=== PATIENT | female | born 1960 | race Caucasian/White ===

== ENCOUNTER 2016-10-26 16:07 | Emergency (ER) | payer SELFPAY ==
[2016-10-26 16:29] VITALS: BP 120/70
--- NOTE | 2016-10-26 17:05 | UC ---
General HPI - HPI Summary HPI Summary: complaint of right lower jaw pain that started 2 days ago was flossing her teeth vigorously and then ate a hard cookie took some augmentin that was left over from a previous infection this morning denies fever and chills using some aspirin paste, clove oil, mouth wash toothpaste for sensitive teeth started to see new dentist [facility] - History of Current Complaint Chief Complaint: UCDentalProblem Stated Complaint: JAW SWOLLEN Time Seen by Provider: 10/26/16 16:30 Hx Obtained From: Patient - Allergy/Home Medications Allergies/Adverse Reactions: Allergies Allergy/AdvReac Type Severity Reaction Status Date / Time Adhesive Tape Allergy Itching Verified 10/26/16 16:18 Scented Detergent Allergy Hives Uncoded 10/26/16 16:18 Home Medications: Home Medications Amoxicillin/Clavulanate TAB* [Augmentin TAB 875*] 1 tab PO BID 10/26/16 [ History Confirmed 10/26/16] Aspirin TAB* [Aspirin 325 MG TAB*] 1 tab PO TID PRN 10/26/16 [History Confirmed 10/26/16] PMH/Surg Hx/FS Hx/Imm Hx Previously Healthy: Yes Endocrine History Of: Denies: Diabetes, Thyroid Disease Cardiovascular History Of: Denies: Cardiac Disorders, Hypertension, Congestive Heart Failure Respiratory History Of: Reports: Asthma - sometimes with allergies Denies: COPD GI/ History Of: Denies: Ulcer, Renal Disease - Surgical History Surgical History: Yes Surgery Procedure, Year, and Place: tonsillectomy at 10 years old. csection 1994 - Family History Known Family History: Positive: None Negative: Cardiac Disease, Hypertension, Diabetes - Social History Alcohol Use: Occasionally Substance Use Type: None Smoking Status (MU): Never Smoked Tobacco Review of Systems Constitutional: Negative Skin: Negative Eyes: Negative ENT: Dental Pain Respiratory: Negative Cardiovascular: Negative Gastrointestinal: Negative Genitourinary: Negative Motor: Negative Neurovascular: Negative Musculoskeletal: Negative Neurological: Negative Psychological: Negative All Other Systems Reviewed And Are Negative: Yes Physical Exam Triage Information Reviewed: Yes Appearance: No Pain Distress, Well-Nourished Vital Signs: Initial Vital Signs Temp 98.2 F 10/26/16 16:21 Pulse 63 10/26/16 16:21 Resp 16 10/26/16 16:21 BP 120/70 10/26/16 16:21 Pulse Ox 98 04/01/17 16:21 Vital Signs Reviewed: Yes Eyes: Positive: Conjunctiva Clear ENT: Positive: Pharynx normal, TMs normal. Negative: Nasal congestion Dental: Positive: Abscess @ - 29 Neck: Positive: No Lymphadenopathy Respiratory: Positive: Lungs clear, Normal breath sounds, No respiratory distress Cardiovascular: Positive: RRR, No Murmur, Pulses Normal Abdomen Description: Positive: Nontender, Soft Bowel Sounds: Positive: Present Musculoskeletal: Positive: No Edema Neurological: Positive: Alert Psychological Exam: Normal Skin Exam: Normal Course/Dx - Differential Dx - Multi-Symptom Differential Diagnoses: Other - dental infection, dental abscess Provider Diagnoses: dental abscess Discharge - Discharge Plan Condition: Stable Disposition: HOME Prescriptions: Amoxicillin/Clavulanate TAB* [Augmentin TAB 875*] 875 mg PO BID #20 tab Patient Education Materials: Dental Abscess (ED) Forms: *Work Release Referrals: No Primary Care Phys,NOPCP [Primary Care Provider] - [facility]FERR[facility] [Outside] Additional Instructions: Start antibiotic as directed Increase fluids and rest Take acetaminophen or ibuprofen for fever or pain please followup with your dentist for further treatment Please review your discharge instructions. If your symptoms do not improve please call your primary care provider or return to urgent care
[2016-10-26] MEDS ORDERED: Ibuprofen TAB* 400 MG PO ONE (17:24)
== END 2016-10-26 17:36 | disposition home or self-care (01) ==
LOC: UCEAST 16:07
DX: K04.7 Periapical abscess without sinus (principal)
CPT/HCPCS: 99212; A9270-GY; G0463

== ENCOUNTER 2016-12-12 18:34 | Emergency (ER) | payer BC ==
[2016-12-12 18:54] VITALS: BP 134/78
--- NOTE | 2016-12-12 19:13 | UC ---
Lower Extremity/Ankle HPI - HPI Summary HPI Summary: The patient comes in today for: 1. Pain in the right leg: Onset: About a week ago. Palliative/provocative: Standing and sitting makes it worse. Quality: Sharp and ache Region: behind the right leg. Severity: 6/10 Time: Constant. Associated symptoms: Event: She got up from her bed and cross the hallway. She slipped on the floor and right right leg was out in front of her. She states that she was on the floor for about an hour. The leg was in spasm. She took ibuprofen and muscle relaxer and finally got up. She did not put ice on it. She rested and kept her leg elevated. She did not see anyone for this. She was able to work today and yesterday. Previous injury: none. 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 ?: No - Allergies/Home Medications Allergies/Adverse Reactions: Allergies Allergy/AdvReac Type Severity Reaction Status Date / Time Adhesive Tape Allergy Itching Verified 12/12/16 18:54 Scented Detergent Allergy Hives Uncoded 12/12/16 18:54 PMH/Surg Hx/FS Hx/Imm Hx Previously Healthy: No - She has "factor V" Endocrine History Of: Denies: Diabetes, Thyroid Disease, Hyperthyroidism, Hypothyroidism, Dyslipidemia Cardiovascular History Of: Denies: Cardiac Disorders, Hypertension, Pacemaker/ICD, Myocardial Infarction , Congestive Heart Failure, Atrial Fibrillation, Deep Vein Thrombosis, Bleeding Disorders Respiratory History Of: Reports: Asthma - sometimes with allergies Denies: COPD, Bronchitis, Pneumonia, Pulmonary Embolism GI/ History Of: Denies: Gastroesophageal Reflux, Ulcer, Gastrointestinal Bleed, Gall Bladder Disease, Kidney Stones, Diverticulitis, Renal Disease, Urosepsis Neurological History Of: Denies: TIA, CVA, Dementia, Seizures, Migraine Psychological History Of: Denies: Anxiety, Depression, Bipolar Disorder, Schizophrenia, Post Traumatic Stress Disorder Cancer History Of: Denies: Lung Cancer, Colorectal Cancer, Breast Cancer, Prostate Cancer, Cervical Cancer Other History Of: Negative For: HIV, Hepatitis B, Hepatitis C, Anticoagulant Therapy - Aspirin - Surgical History Surgical History: Yes Surgery Procedure, Year, and Place: tonsillectomy at 10 years old. csection 1994 - Family History Known Family History: Negative: Cardiac Disease, Hypertension, Diabetes - Social History Occupation: Employed Full-time Alcohol Use: Occasionally Substance Use Type: None Smoking Status (MU): Never Smoked Tobacco Review of Systems Constitutional: Negative Skin: Rash Eyes: Negative ENT: Negative Respiratory: Negative Cardiovascular: Negative Gastrointestinal: Negative Genitourinary: Negative All Other Systems Reviewed And Are Negative: Yes Physical Exam Triage Information Reviewed: Yes Appearance: Well-Appearing, No Pain Distress, Well-Nourished Vital Signs: Initial Vital Signs Temp 97.6 F 12/12/16 18:47 Pulse 79 12/12/16 18:47 Resp 16 12/12/16 18:47 BP 134/78 12/12/16 18:47 Pulse Ox 98 12/12/16 18:47 Vital Signs Reviewed: Yes Eyes: Positive: Conjunctiva Clear. Negative: Discharge ENT: Positive: Hearing grossly normal. Negative: Pharyngeal erythema, Nasal congestion, Nasal drainage, TM bulging, TM dull, TM red, Tonsillar swelling, Tonsillar exudate Dental: Negative: Gross Decay/Caries @, Dental Fracture @ Neck: Positive: Supple, Nontender, No Lymphadenopathy. Negative: Nuchal Rigidity Respiratory: Positive: Chest non-tender, Lungs clear, No respiratory distress, No accessory muscle use. Negative: Crackles, Wheezing Cardiovascular: Positive: RRR, No Murmur Abdomen Description: Positive: Nontender, No Organomegaly, Soft. Negative: Distended, Guarding Musculoskeletal: Positive: Strength Intact, Other: - The patient has increased swelling and bruising of her right thigh from the buttocks to the knee. There is tenderness of palpation of this area and behind the knee at the hamstring tendon area. Lower Extremity Course/Dx - Course Course Of Treatment: The patient was told that she probably has some soft tissue injury such as tearing of the posterior thigh muscles and/or tendons. However, she was told that I could not rule out any DVT particularly in light of her Factor V condition. For this, she was encouraged to go to the ER. She declined this and only wanted a work note and a refil of ibuprofen. - Differential Dx/Diagnosis Provider Diagnoses: Right leg soft tissue injury, swelling (possible DVT?) Discharge - Discharge Plan Condition: Stable Disposition: AGAINST MEDICAL ADVICE Patient Education Materials: Contusion in Adults (ED) Forms: *Work Release Referrals: No Primary Care Phys,NOPCP [Primary Care Provider] - As Soon As Possible (If you are not going to the ER, please see your primary care provider as soon as you can. If you don't have one or if you can't get in timely, please see the antenna specialist for evaluation of possible muscular and/or tendon injury.) [facility]IAN REFERRAL [Outside] Alfredo Balderas MD [Medical Doctor] - As Soon As Possible (If you are not able to get in to see your primary care provider timely, please see the antenna specialist for evaluation of possible torn muscle and/or tendons of the right posterior thigh.)
== END 2016-12-12 20:21 | disposition left against medical advice (07) ==
LOC: UCEAST 18:34
DX: M79.9 Soft tissue disorder, unspecified (principal); D68.51 Activated protein C resistance
CPT/HCPCS: 99212; G0463

== ENCOUNTER 2017-01-07 09:39 | Emergency (ER) | payer SELFPAY ==
[2017-01-07 09:49] VITALS: BP 134/80
--- NOTE | 2017-01-07 11:40 | RAD ---
Indication: Bilateral knee pain. Fall 6 months ago. Comparison: No relevant prior exams available on the [facility] for comparison. Technique: Bilateral knees. AP, tunnel, lateral, sunrise views obtained. Report: Right knee: Mild lateral subluxation of the patella relative to the femoral trochlea. Negative for patella king. Joint space narrowing at the patellofemoral joint with associated subchondral sclerosis and cystic change. Mild osteophytosis. Negative for significant femoral tibial joint space narrowing. Negative for joint effusion or fracture. Unremarkable soft tissue contours. Left knee: Normal alignment. Osteophytosis most prominent at the patellofemoral joint. Mild to moderate joint space narrowing at the lateral facet of the patellofemoral joint with associated subchondral sclerosis and cystic change. Negative for significant femoral tibial joint space narrowing. Negative for joint effusion or fracture. Unremarkable soft tissue contours. IMPRESSION: Bilateral osteoarthritis most prominent at the patellofemoral joints worse on the RIGHT than the LEFT. Mild lateral subluxation of the RIGHT patella relative to the femoral trochlea.
--- NOTE | 2017-01-07 12:45 | UC ---
Renata Salmeron Alok, scribed for Rahul Rodriguez MD on 01/07/17 at 1049 . Minor Trauma HPI - HPI Summary HPI Summary: 56F presents after pulling her right hamstring on 12/06/16 while at home. Pt states her hamstring pain has resolved since and requires note allowing return to work. Pt additionally states she slipped on a rug at work 07/20/17 causing her to fall on her knees. Pt notes left knee pain as well as right knee pain, secondary to left, ever since her fall which may have contributed to hamstring pull. PMHx includes factor V leiden thrombophilia. Pt denies h/o DVT/PE - History of Current Complaint Chief Complaint: UCGeneralIllness Stated Complaint: HAMSTRING INJURY Time Seen by Provider: 01/07/17 10:39 Hx Obtained From: Patient Hx Last Menstrual Period: Menopause. ?: No Onset/Duration: Lasting Weeks, Still Present - Left knee pain, right knee pain, Resolved - Right Hamstring Pain Severity Initially: Moderate Severity Currently: Moderate Mechanism Of Injury: Fall From A Standing Position Aggravating Factor(s): Nothing Alleviating Factor(s): Nothing - Allergies/Home Medications Allergies/Adverse Reactions: Allergies Allergy/AdvReac Type Severity Reaction Status Date / Time Adhesive Tape Allergy Itching Verified 01/07/17 09:49 Scented Detergent Allergy Hives Uncoded 01/07/17 09:49 PMH/Surg Hx/FS Hx/Imm Hx Other History Of: Negative For: HIV, Hepatitis B, Hepatitis C, Anticoagulant Therapy - Aspirin - Surgical History Surgical History: Yes Surgery Procedure, Year, and Place: tonsillectomy at 10 years old. csection 1994 - Family History Known Family History: Negative: Cardiac Disease, Hypertension, Diabetes - Social History Occupation: Employed Full-time Alcohol Use: Occasionally Substance Use Type: None Smoking Status (MU): Never Smoked Tobacco Review of Systems Constitutional: Negative Musculoskeletal: Other: - left knee pain, right knee pain All Other Systems Reviewed And Are Negative: Yes Physical Exam Triage Information Reviewed: Yes Appearance: Well-Appearing, No Pain Distress Vital Signs: Initial Vital Signs Temp 97.4 F 01/07/17 09:42 Pulse 87 01/07/17 09:42 Resp 18 01/07/17 09:42 BP 134/80 01/07/17 09:42 Pulse Ox 98 06/13/17 09:42 Vital Signs Reviewed: Yes Eyes: Positive: Other: - EOMI, [place] ENT Exam: Normal Neck: Positive: Supple, Nontender Respiratory: Positive: Lungs clear, Normal breath sounds Cardiovascular: Positive: RRR Abdomen Description: Positive: Nontender, Soft Bowel Sounds: Positive: Present Musculoskeletal: Positive: Other: - Right hamstring intact and non-tender. Ecchymosis inner medial posterior aspect of the distal thigh and beneath. Both knee exams normal. Neurological Exam: Normal Neurological: Positive: Other: - Alert & Oriented X3. Sensory Motor Intact Psychological: Positive: Other: - affect/mood appropriate Skin: Positive: Other - warm, dry, color reflects adequate perfusion Diagnostics - Radiology Knee XRAY Xray Interpretation: Positive (See Comments) - IMPRESSION: Bilateral osteoarthritis most prominent at the patellofemoral joints worse on the RIGHT than the LEFT. Mild lateral subluxation of the RIGHT patella relative to the femoral trochlea. Radiology Interpretation Completed By: Radiologist Minor Trauma Course/Dx - Course Course Of Treatment: Pt medications reviewed this visit. HAMSTRING INJURY, WHICH DID NOT OCCUR AT WORK, IS IMPROVED; PATIENT CAN RETURN TO WORK. THE LEFT KNEE INJURY, WHICH OCCURED AT WORK ON 07/20/17, CAUSED PAIN IN THE LEFT KNEE; THE PATIENT DID NOT TAKE ANY TIME OFF FROM WORK FOR THE LEFT KNEE INJURY; THE PATIENT REQUESTED AND I FILLED OUT A WORKER COMP FOR FOR THE LEFT KNEE INJURY. - Differential Dx/Diagnosis Provider Diagnoses: RIGHT HAMSTRING INJURY, IMPROVED. B/L KNEE OSTEOARTHRITIS. Discharge - Discharge Plan Condition: Stable Disposition: HOME Patient Education Materials: Knee Pain (ED), Osteoarthritis (ED), Hamstring Injury (ED) Forms: *Work Release Referrals: No Primary Care Phys,NOPCP [Primary Care Provider] - Additional Instructions: FOLLOW UP WITH YOUR DOCTOR. GET RECHECKED FOR ANY WORSENING OF YOUR CONDITION OR QUESTIONS OR CONCERNS. The documentation as recorded by the Renata torrez Alok accurately reflects the service I personally performed and the decisions made by , Rahul Rodriguez MD.
== END 2017-01-07 12:56 | disposition home or self-care (01) ==
LOC: UCEAST 09:39
DX: S89.91XA Unspecified injury of right lower leg, initial encounter (principal); W19.XXXA Unspecified fall, initial encounter; Y92.9 Unspecified place or not applicable; D68.51 Activated protein C resistance
CPT/HCPCS: 99211; G0463

== ENCOUNTER 2018-02-15 15:57 | Emergency (ER) | payer OTHER ==
[2018-02-15 16:31] VITALS: BP 136/86
--- NOTE | 2018-02-15 16:38 | UC ---
Dental HPI - HPI Summary HPI Summary: acute reonset of chronic dental issues. teeth in lower front jaw are over lapping --has pain and swelling in center of low gum - History of Current Complaint Chief Complaint: UCDentalProblem Stated Complaint: DENTAL COMPLAINT Time Seen by Provider: 02/15/18 16:35 Hx Obtained From: Patient Hx Last Menstrual Period: menopausal ?: No Onset/Duration: Gradual Onset, Lasting Days, Still Present Pain Intensity: 7 Pain Scale Used: 0-10 Numeric Aggravating Factor(s): Chewing Alleviating Factor(s): Nothing Related History: Previous Dental Care on Same Tooth, Swelling - Allergies/Home Medications Allergies/Adverse Reactions: Allergies Allergy/AdvReac Type Severity Reaction Status Date / Time Adhesive Tape Allergy Itching Verified 05/27/17 14:56 Scented Detergent Allergy Hives Uncoded 05/27/17 14:56 PMH/Surg Hx/FS Hx/Imm Hx Previously Healthy: Yes Other History Of: Negative For: HIV, Hepatitis B, Hepatitis C, Anticoagulant Therapy - Aspirin - Surgical History Surgical History: Yes Surgery Procedure, Year, and Place: tonsillectomy at 10 years old. csection 1994 - Family History Known Family History: Positive: None, Cardiac Disease, Diabetes Negative: Hypertension - Social History Occupation: Employed Full-time Lives: With Family Alcohol Use: Occasionally Substance Use Type: None Smoking Status (MU): Never Smoked Tobacco - Immunization History Most Recent Influenza Vaccination: none Review of Systems Constitutional: Negative Skin: Negative Eyes: Negative ENT: Dental Pain - front lowerteeth Respiratory: Negative Cardiovascular: Negative Gastrointestinal: Negative Genitourinary: Negative Motor: Negative Neurovascular: Negative Musculoskeletal: Negative Neurological: Negative Psychological: Negative Is Patient Immunocompromised?: No All Other Systems Reviewed And Are Negative: Yes Physical Exam Triage Information Reviewed: Yes Appearance: Well-Appearing, No Pain Distress, Well-Nourished Vital Signs: Initial Vital Signs Temp 97.7 F 02/15/18 16:22 Pulse 62 02/15/18 16:22 Resp 16 02/15/18 16:22 BP 136/86 02/15/18 16:22 Pulse Ox 97 02/15/18 16:22 Vital Signs Reviewed: Yes Eye Exam: Normal Eyes: Positive: Conjunctiva Clear ENT Exam: Normal ENT: Positive: Normal ENT inspection, Hearing grossly normal, Dental tenderness , Uvula midline. Negative: Trismus, Muffled voice, Hoarse voice, Sinus tenderness Dental Exam: Normal Dental: Positive: Percussion Tenderness @ - numbers 22-27, Abscess @ - front power jaw, Cervical Lymphadenopathy Neck exam: Normal Neck: Positive: Supple, Nontender Respiratory Exam: Normal Respiratory: Positive: Chest non-tender, No respiratory distress, No accessory muscle use Cardiovascular Exam: Normal Cardiovascular: Positive: Pulses Normal, Brisk Capillary Refill Musculoskeletal Exam: Normal Musculoskeletal: Positive: Strength Intact, ROM Intact, No Edema Neurological Exam: Normal Neurological: Positive: Alert, Fatigued Psychological Exam: Normal Skin Exam: Normal Dental Complaint Course/Dx - Course Course Of Treatment: clindamycin, chlorhexidiene rinse follow with dentist this week - Differential Dx/Diagnosis Provider Diagnoses: dental pain with swelling center front jaw Discharge - Sign-Out/Discharge Documenting (check all that apply): Patient Departure - Discharge Plan Condition: Stable Disposition: HOME Prescriptions: Chlorhexidine MW 0.12% 473ML* [Peridex Mouth Wash 0.12%] 15 ml .SEE ORDER BID # 1 btl Clindamycin Cap(NF) [Clindamycin Cap 300 mg Cap(NF)] 300 mg PO Q6H #40 cap Patient Education Materials: Dental Abscess (ED) Referrals: No Primary Care Phys,NOPCP [Primary Care Provider] - Additional Instructions: follow with dentist as soon as possible - Billing Disposition and Condition Condition: STABLE Disposition: Home
[2018-02-15] MEDS ORDERED: Clindamycin CAP* 150 MG PO ONE ×2 (16:45→16:46)
== END 2018-02-15 16:55 | disposition home or self-care (01) ==
LOC: UCEAST 15:57
DX: K08.89 Other specified disorders of teeth and supporting structures (principal); R22.0 Localized swelling, mass and lump, head; Z91.048 Other nonmedicinal substance allergy status
CPT/HCPCS: 99212; A9270-GY; G0463

== ENCOUNTER 2019-05-01 18:06 | Emergency (ER) | payer MEDICAID, OTHER ==
[2019-05-01 19:16] VITALS: BP 136/82
--- NOTE | 2019-05-01 19:17 | UC ---
UC Dental HPI - HPI Summary HPI Summary: 58 yo woman, generally well,with increasing pain in the right lower dentition for the past several days. No associated fever. Has been using a past of aspirin , but no other analgesics. Last dental check about a year ago. - History of Current Complaint Chief Complaint: UCDentalProblem Stated Complaint: DENTAL Time Seen by Provider: 05/01/19 19:06 Hx Obtained From: Patient Hx Last Menstrual Period: menopausal Onset/Duration: Gradual Onset, Lasting Days - 3 Pain Intensity: 7 Aggravating Factor(s): Cold Alleviating Factor(s): Topical Meds Related History: Previous Dental Care on Same Tooth - Allergies/Home Medications Allergies/Adverse Reactions: Allergies Allergy/AdvReac Type Severity Reaction Status Date / Time Adhesive Tape Allergy Itching Verified 05/01/19 18:55 fabric softener Allergy Hives Uncoded 05/01/19 18:55 mildew Allergy respiratory Uncoded 05/01/19 18:55 symptoms Scented Detergent Allergy Hives Uncoded 05/01/19 18:55 PMH/Surg Hx/FS Hx/Imm Hx Respiratory History: Asthma - allergy induced. Other History Of: Negative For: HIV, Hepatitis B, Hepatitis C, Anticoagulant Therapy - Aspirin - Surgical History Surgical History: Yes Surgery Procedure, Year, and Place: tonsillectomy at 10 years old. csection 1994 - Family History Known Family History: Positive: Cardiac Disease, Diabetes, Non-Contributory Negative: Hypertension - Social History Occupation: Employed Full-time - works on suicide prevention Alcohol Use: Occasionally Substance Use Type: None Smoking Status (MU): Never Smoked Tobacco - Immunization History Most Recent Influenza Vaccination: none Review of Systems All Other Systems Reviewed And Are Negative: Yes Constitutional: Positive: Negative Skin: Positive: Negative, Other - has some actinic skin change. Eyes: Positive: Negative ENT: Positive: Dental Pain. Negative: Sinus Congestion Respiratory: Positive: Negative Cardiovascular: Positive: Negative Gastrointestinal: Positive: Negative Genitourinary: Positive: Negative Motor: Positive: Negative Neurovascular: Positive: Negative Musculoskeletal: Positive: Negative Neurological: Positive: Negative Psychological: Positive: Negative Is Patient Immunocompromised?: No Physical Exam Triage Information Reviewed: Yes Appearance: Well-Appearing, Pain Distress - mild to moderate Vital Signs: Initial Vital Signs Temp 97.4 F 05/01/19 18:48 Pulse 69 05/01/19 18:48 Resp 18 05/01/19 18:48 Pulse Ox 97 05/01/19 18:48 Eye Exam: Normal ENT: Positive: Pharynx normal, TMs normal Dental: Positive: Gross Decay/Caries @ - #30, Abscess @ - buccal gum base #30 Neck: Positive: Supple, Nontender, No Lymphadenopathy Respiratory: Positive: Lungs clear, Normal breath sounds Cardiovascular: Positive: RRR, No Murmur Musculoskeletal Exam: Normal Neurological Exam: Normal Neurological: Positive: Alert, Muscle Tone Normal Skin Exam: Normal Images Dental: 1 - abscess buccal gum line. 2 - absent Dental Complaint Course/Dx - Course Course Of Treatment: begin Pen VK for treatment, and ibuprofen for pain. Will arrange a dental visit. - Differential Dx/Diagnosis Differential Diagnosis/Dx: Dental Abscess, Dental Caries, Fractured Tooth, Gingivitis Provider Diagnosis: Dental abscess Discharge ED - Sign-Out/Discharge Documenting (check all that apply): Patient Departure All imaging exams completed and their final reports reviewed: No Studies - Discharge Plan Condition: Good Disposition: HOME Patient Education Materials: Dental Abscess (ED) Referrals: No Primary Care Phys,NOPCP [Primary Care Provider] - Additional Instructions: Begin penicillin for treatment of dental infection, ensuring that you arrange a dental check soon. Pain should improve after 48 hours of treatment. Use ibuprofen 800mg three times daily for control of pain, and you can use additional acetaminphen 650mg up to 4 times daily to improve pain control. - Billing Disposition and Condition Condition: GOOD Disposition: Home
[2019-05-01] MEDS ORDERED: Penicillin VK TAB* 250 MG PO ONE (19:24)
[2019-05-01] MEDS ORDERED: Ibuprofen TAB* 400 MG PO ONE (19:25)
[2019-05-01] MEDS ORDERED: Acetaminophen TAB* 325 MG PO ONE ×2 (19:41→19:42)
== END 2019-05-01 19:50 | disposition home or self-care (01) ==
LOC: UCEAST 18:06
DX: K04.7 Periapical abscess without sinus (principal); J45.909 Unspecified asthma, uncomplicated; Z91.09 Other allergy status, other than to drugs and biological substances
CPT/HCPCS: 99213; A9270-GY; G0463

== ENCOUNTER 2019-09-25 17:08 | Emergency (ER) | payer MEDICAID, OTHER ==
[2019-09-25 17:19] VITALS: BP 00/00
--- NOTE | 2019-09-25 18:00 | UC ---
Complaint Female HPI - HPI Summary HPI Summary: 59-year-old female comes in with a chief complaint of dark urine and flank pain. 5 or 6 days ago patient had influenza-like illness with fever chills generalized body aches. She had low back pain at that time. She's also been having recurrent dental infections in the right lower molar. She feels like that's coming back now with some swelling of the cheek. Patient reports she's been taking ibuprofen and Tylenol for the recurrent dental pain and infections and also for the influenza-like symptoms. Ibuprofen and Tylenol do help with both. Patient is noticed that she is continuing to have dark urine and with the combination of dark urine and that continued flank pain she was concerned about the possibility of urinary tract infection. Is no burning with urination no change in bowels. She does have a history of gluten sensitivity since she does have intermittent abdominal discomfort but that symptom has not changed. - History Of Current Complaint Chief Complaint: UCGU Stated Complaint: URINARY COMPLAINT Time Seen by Provider: 09/25/19 17:19 Hx Last Menstrual Period: menopausal Pain Intensity: 2 - Allergies/Home Medications Allergies/Adverse Reactions: Allergies Allergy/AdvReac Type Severity Reaction Status Date / Time Adhesive Tape Allergy Itching Verified 09/25/19 17:19 fabric softener Allergy Hives Uncoded 09/25/19 17:19 mildew Allergy respiratory Uncoded 09/25/19 17:19 symptoms Scented Detergent Allergy Hives Uncoded 09/25/19 17:19 Home Medications: Home Medications Albuterol HFA INHALER* [Ventolin HFA Inhaler*] 2 puff INH Q4H PRN #1 mdi [Rx Confirmed 09/25/19] Clindamycin Cap(NF) [Clindamycin Cap 300 mg Cap(NF)] 300 mg PO TID #30 cap [Rx] PMH/Surg Hx/FS Hx/Imm Hx Previously Healthy: Yes Other History Of: Negative For: HIV, Hepatitis B, Hepatitis C, Anticoagulant Therapy - Aspirin - Surgical History Surgical History: Yes Surgery Procedure, Year, and Place: tonsillectomy at 10 years old. csection 1994 - Family History Known Family History: Positive: None, Cardiac Disease, Diabetes, Non- Contributory Negative: Hypertension - Social History Alcohol Use: Daily Substance Use Type: None Smoking Status (MU): Never Smoked Tobacco - Immunization History Most Recent Influenza Vaccination: none Review of Systems All Other Systems Reviewed And Are Negative: Yes Constitutional: Positive: Other - see hpi Skin: Positive: Negative Eyes: Positive: Negative ENT: Positive: Dental Pain Respiratory: Positive: Negative Cardiovascular: Positive: Negative Gastrointestinal: Positive: Other - see hpi Genitourinary: Positive: Other - see hpi Motor: Positive: Negative Neurovascular: Positive: Negative Musculoskeletal: Positive: Myalgia, Other: - see hpi Neurological/Mental Status: Positive: Negative Psychological: Positive: Negative Is Patient Immunocompromised?: No Physical Exam Triage Information Reviewed: Yes Appearance: Well-Appearing, No Pain Distress, Well-Nourished Vital Signs: Initial Vital Signs Temp 97.9 F 09/25/19 17:13 Pulse 80 09/25/19 17:13 Resp 16 09/25/19 17:13 BP 00/09/25/19 17:13 Pulse Ox 97 09/25/19 17:13 Vital Signs Reviewed: Yes Eye Exam: Normal Eyes: Positive: Conjunctiva Clear ENT: Positive: Pharynx normal, TMs normal Dental: Positive: Gross Decay/Caries @ - Right lower molar, Abscess @ - There is swelling in the gingiva and cheek adjacent to the right lower molar. Neck: Positive: Supple Respiratory: Positive: Lungs clear, Normal breath sounds, No respiratory distress Cardiovascular: Positive: RRR Musculoskeletal: Positive: Strength Intact, ROM Intact Neurological: Positive: Alert, Muscle Tone Normal Psychological: Positive: Age Appropriate Behavior Skin Exam: Normal Complaint Female Dx - Course Course Of Treatment: Will treat the dental infection with clindamycin as the patient reports clindamycin is helped in the past. Patient will follow-up with her dentist for that. Patient asked me to write a note recommending dental care for the right lower molar recurrent infections and pain which I did. Urine does have bilirubin, protein and glucose and specific gravity is high. CBC and CMP are pending to ensure no renal insufficiency or elevation of liver functions either due to the recent infection or the recurrent use of acetaminophen and ibuprofen. Patient will follow-up with her primary care doctor she is to get reevaluated sooner if worse or any questions or concerns. - Differential Dx/Diagnosis Provider Diagnosis: Dental infection, Dehydration, Bilirubinuria, Low back pain Discharge ED - Sign-Out/Discharge Documenting (check all that apply): Patient Departure All imaging exams completed and their final reports reviewed: No Studies - Discharge Plan Condition: Stable Disposition: HOME Prescriptions: Clindamycin Cap(NF) [Clindamycin Cap 300 mg Cap(NF)] 300 mg PO TID #30 cap Patient Education Materials: Dehydration (ED), Acute Low Back Pain (ED), Toothache (ED) Forms: *Gen. Provider Communication Referrals: [facility] [Outside] [facility] [Outside] Additional Instructions: FOLLOW UP WITH YOUR DOCTOR. GET REEVALUATED SOONER IF NOT IMPROVED OR WORSE; PAIN, FEVER, YOU FEEL ILL, YOUR URINE COLOR DOES NOT RETURN TO NORMAL OR ANY QUESTIONS OR CONCERNS. - Billing Disposition and Condition Condition: STABLE Disposition: Home
[2019-09-25] MEDS ORDERED: Clindamycin CAP* 150 MG PO ONE (18:03)
[2019-09-26 10:06] LABS: ABS Basophils 0.1 10^3/ul (0-0.2); ABS Eosinophils 0.1 10^3/ul (0-0.6); ABS Lymphocytes 1.8 10^3/ul (1.0-4.8); ABS Monocytes 0.7 10^3/ul (0-0.8); ABS Neutrophils 3.8 10^3/ul (1.5-7.7); Eosinophil % 2.2 %; Hematocrit 50 % (35-47); Hemoglobin 16.9 g/dL (12.0-16.0); Lymphocyte % 27.9 %; Mean Corpuscular HGB Conc 34 g/dL (31-36); Mean Corpuscular Hemoglobin 32 pg (27-31); Mean Corpuscular Volume 92 fL (80-97); Mean Platelet Volume 8.5 fL (7.4-10.4); Platelet Count 278 10^3/uL (150-450); Red Blood Count 5.38 10^6 /uL (3.70-4.87); Red Cell Distribution Width 13 % (10-15); White Blood Count 6.6 10^3/uL (3.5-10.8)
[2019-09-26 10:11] LABS: Albumin 4.4 g/dL (3.2-5.2); Calcium 9.6 mg/dL (8.6-10.3); Potassium 4.5 mmol/L (3.5-5.0); Total Bilirubin 0.7 mg/dL (0.2-1.0)
[2019-09-26 10:17] LABS: Albumin/Globulin Ratio 1.5 (1-3); BUN/Creatinine Ratio 28.9 (8-20); EGFR Non-African American 63.7 (>60); Total Protein 7.4 g/dL (6.4-8.9)
--- NOTE | 2019-09-26 16:55 | UC ---
- Progress Note Progress Note: CBC and CMP from September 25, 2019 come back with slightly elevated BUN and BUN/ creatinine ratio. BUN is elevated 26 normal range is 6-24. BUN/creatinine ratio is elevated at 28.9 normal ranges 8-20. Hemoglobin and hematocrit slightly elevated at 16.9 and 50. Normal hemoglobin is 12-16 and hematocrit normal is 35-47. Patient was seen with dark urine. Patient called to clinic and I spoke with her at 4:50 PM and explained the labs. Patient has continued to drink water and her urine is becoming less dark. I recommended patient continue to stay hydrated and get all of this rechecked with her primary care physician. Course/Dx - Diagnoses Provider Diagnoses: Dental infection, Dehydration, Bilirubinuria, Low back pain Discharge ED - Sign-Out/Discharge Documenting (check all that apply): Patient Departure All imaging exams completed and their final reports reviewed: No Studies - Discharge Plan Condition: Stable Disposition: HOME Prescriptions: Clindamycin Cap(NF) [Clindamycin Cap 300 mg Cap(NF)] 300 mg PO TID #30 cap Patient Education Materials: Dehydration (ED), Acute Low Back Pain (ED), Toothache (ED) Forms: *Gen. Provider Communication Referrals: [facility] [Outside] [facility] [Outside] Additional Instructions: FOLLOW UP WITH YOUR DOCTOR. GET REEVALUATED SOONER IF NOT IMPROVED OR WORSE; PAIN, FEVER, YOU FEEL ILL, YOUR URINE COLOR DOES NOT RETURN TO NORMAL OR ANY QUESTIONS OR CONCERNS. - Billing Disposition and Condition Condition: STABLE Disposition: Home
== END 2019-09-25 18:15 | disposition home or self-care (01) ==
LOC: UCEAST 17:08
DX: K04.7 Periapical abscess without sinus (principal); E86.0 Dehydration; M54.5 Low back pain; R82.2 Biliuria; Z91.09 Other allergy status, other than to drugs and biological substances
CPT/HCPCS: 36415; 80053; 81003; 85025; 99212; A9270-GY; G0463